=== PATIENT | female | born 1950 | race Two or more races ===

== ENCOUNTER 2021-09-28 18:46 | Emergency (ER) | payer OTHER ==
[~2021-09-28] VITALS: Ht 157.5 cm; Wt 59.0 kg
[2021-09-28] MEDS ORDERED: LANTUS SOL100 UNIT/1 SQ (19:39)
[2021-09-29] MEDS ORDERED: GABAPENTIN100 M2 (16:14)
[2021-09-29] MEDS ORDERED: NABUMETONE750 MG (16:14)
[2021-09-29] MEDS ORDERED: DUI500 PO (18:40)
[2021-09-29] MEDS ORDERED: ULTRACET PO (18:40)
[2021-09-29] MEDS ORDERED: ASA325 MG PO (18:40)
== END 2021-09-28 22:28 | disposition home or self-care (01) ==
LOC: ER 18:46
DX: M25.562 Pain in left knee (principal); Z01.818 Encounter for other preprocedural examination; E11.9 Type 2 diabetes mellitus without complications; J45.998 Other asthma; M22.92 Unspecified disorder of patella, left knee

== ENCOUNTER 2021-09-29 13:30 | Inpatient (IN) | payer OTHER ==
[~2021-09-29] VITALS: Ht 165.1 cm; Wt 59.0 kg
[~2021-09-29 13:30] MED LIST: LANTUS SOL100 UNIT/1 SQ
[2021-09-29] MEDS ORDERED: NABUMETONE750 MG (16:14)
[2021-09-29] MEDS ORDERED: GABAPENTIN100 M2 (16:14)
[2021-09-29] MEDS ORDERED: DUI500 PO (18:40)
[2021-09-29] MEDS ORDERED: ASA325 MG PO (18:40)
[2021-09-29] MEDS ORDERED: ULTRACET PO (18:40)
== END 2021-09-30 07:40 | disposition home or self-care (01) | DRG 516 ==
LOC: ER 13:30 → O/R 15:18 → SEC-K 15:18 → O/R 15:45
PROVIDERS: ADMIT Orthopaedic Surgery; ATTEND Orthopaedic Surgery
PROC: 2W3RX2Z Immobilization of Left Lower Leg using Cast (ICD-10-PCS; 2021-09-29)
PROC: 0QSF04Z Reposition Left Patella with Internal Fixation Device, Open Approach (ICD-10-PCS; principal; 2021-09-29 15:00)
DX: S82.045A Nondisplaced comminuted fracture of left patella, initial encounter for closed fracture (principal); M97.12XA Periprosthetic fracture around internal prosthetic left knee joint, initial encounter; M25.062 Hemarthrosis, left knee; S80.02XA Contusion of left knee, initial encounter; S76.112A Strain of left quadriceps muscle, fascia and tendon, initial encounter; W19.XXXA Unspecified fall, initial encounter; Y93.89 Activity, other specified; Y92.89 Other specified places as the place of occurrence of the external cause; Y99.8 Other external cause status; Z20.822 Contact with and (suspected) exposure to COVID-19

== ENCOUNTER 2022-04-01 08:45 | Inpatient (IN) | payer OTHER ==
[~2022-04-01] VITALS: Ht 165.1 cm; Wt 61.2 kg
[~2022-04-01 08:45] MED LIST changes: +ASA325 MG PO; +DUI500 PO; +GABAPENTIN100 M2; +NABUMETONE750 MG; +ULTRACET PO
[2022-04-01] MEDS ORDERED: GLUMETZA500 MG PO (13:32)
[2022-04-08] MEDS ORDERED: CEFADROXIL500 MG PO (15:17)
[2022-04-08] MEDS ORDERED: ACETAMINOPHEN-1 EAC2 PO (15:17)
[2022-04-08] MEDS ORDERED: ELIQUIS2.5 MG PO (15:17)
== END 2022-04-08 20:34 | DRG 467 ==
LOC: SURH 04-06 08:45 → O/R 04-06 09:30 → SURG 04-06 09:30 → SURH 04-06 20:00 → SURG 04-06 20:14
PROVIDERS: ADMIT Orthopaedic Surgery; ATTEND Orthopaedic Surgery
PROC: 0SRD0J9 Replacement of Left Knee Joint with Synthetic Substitute, Cemented, Open Approach (ICD-10-PCS; 2022-04-06)
PROC: 0SPD0JZ Removal of Synthetic Substitute from Left Knee Joint, Open Approach (ICD-10-PCS; principal; 2022-04-06 20:00)
DX: T84.033A Mechanical loosening of internal left knee prosthetic joint, initial encounter (principal); D62 Acute posthemorrhagic anemia; T84.018A Broken internal joint prosthesis, other site, initial encounter; M17.12 Unilateral primary osteoarthritis, left knee; M85.462 Solitary bone cyst, left tibia and fibula; M25.662 Stiffness of left knee, not elsewhere classified